=== PATIENT | male | born 1965 | race Two or more races ===

== ENCOUNTER 2018-02-03 22:36 | Emergency (ER) | payer MEDICAID, OTHER ==
[~2018-02-03] VITALS: Ht 165.1 cm; Wt 69.4 kg
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
--- NOTE | 2018-02-03 22:54 | NUR ---
CALLED [facility] DISPATCH RN HEART [phone]
--- NOTE | 2018-02-03 23:15 | NUR ---
ALEX BEDSIDE TAKING REPORT ON PT.
[2018-02-03 23:24] LABS: BASOPHILS % (AUTO) 0.2 % (0.0-2.0); EOSINOPHILS % (AUTO) 0.6 % (0.0-6.0); HEMATOCRIT 43 % (39-51); HEMOGLOBIN 14.6 g/dL (13.5-17.5); LYMPHOCYTES # (AUTO) 2.5 /CMM (0.8-4.8); LYMPHOCYTES % (AUTO) 17.8 % (20.0-44.0); MEAN CORPUSCULAR HGB CONC 34 g/dl (31.0-36.0); MEAN CORPUSCULAR VOLUME 94 fL (80-96); MONOCYTES # (AUTO) 0.6 /CMM (0.1-1.30); MONOCYTES % (AUTO) 4.4 % (2.0-12.0); NEUTROPHILS # (AUTO) 10.7 /CMM (1.8-8.9); PLATELET COUNT (AUTO) 224 /CMM (150-450); RDW COEFFICIENT OF VARIATION 14.9 (11.5-15.0); RED BLOOD CELL COUNT(AUTO) 4.58 MIL/uL (4.5-6.0); WHITE BLOOD COUNT (AUTO) 13.8 K/uL (4.3-11.0)
[2018-02-03 23:36] LABS: CALCIUM, SERUM 8.9 mg/dL (8.5-10.1); CREATININE 0.9 mg/dL (0.6-1.3); POTASSIUM 4.2 mmol/L (3.5-5.1)
[2018-02-03 23:39] LABS: INR 0.93 (0.87-1.13)
[2018-02-03 23:43] LABS: ALBUMIN 3.9 g/dL (3.4-5.0); BILIRUBIN,TOTAL 0.1 mg/dL (0.2-1.0); TOTAL PROTEIN, SERUM 7.7 g/dL (6.4-8.2)
[2018-02-04] MEDS ORDERED: TDAP [DIPH/PERTUSSIS/TET] 0.5 ML VIAL IM ONE ×2 (02:30→02:44)
[2018-02-04] MEDS ORDERED: CEFAZOLIN 1 GM VIAL IM ONE (02:30)
[2018-02-04] MEDS ORDERED: LIDOCAINE 1%-EPI 1:100,000 20 ML VIAL TP ONE (02:30)
[2018-02-04] MEDS ORDERED: LIDOCAINE 1%-EPI 1:100,000 20 ML VIAL ONE (02:44)
[2018-02-04] MEDS ORDERED: CEFAZOLIN 1 GM ONE (02:44)
--- NOTE | 2018-02-04 02:46 | NUR ---
DR. REY AT BEDSIDE FOR LAC REPAIR.
--- NOTE | 2018-02-04 03:31 | NUR ---
PT IS STABLE AFTER RECEIVING 10 STITCHES TO HIS NOSE BY LILY REY
--- NOTE | 2018-02-04 05:24 | NUR ---
PT IS STABLE IN BED SLEEPING. WILL CONTINUE TO MONITOR FOR ANY CHANGES DURING THE SHIFT.
--- NOTE | 2018-02-04 10:30 | NUR ---
Patient is resting comfortably in bed with eyes closed. Easily aroused. VSS
--- NOTE | 2018-02-04 11:50 | NUR ---
CALLED [employer] FOR FOOD TRAY.
--- NOTE | 2018-02-04 12:20 | NUR ---
FOOD TRAY PROVIDED TO PATIENT AT BS.
--- NOTE | 2018-02-04 12:55 | NUR ---
IV removed. Catheter intact and site benign. Pressure and 4x4 applied to site. No bleeding noted.Patient discharged to home in stable condition. Written and verbal after care instructions given. Patient verbalizes understanding of instruction.
[2018-02-04 12:58] VITALS: BP 126/84
--- NOTE | 2018-02-04 13:00 | NUR ---
AAOX3, AMBULATES OUT OF ER IN STABLE CONDITION.
== END 2018-02-04 13:03 | disposition home or self-care (01) ==
LOC: EDBD 22:39 → ER 22:39
DX: S02.2XXA Fracture of nasal bones, initial encounter for closed fracture (principal); S01.21XA Laceration without foreign body of nose, initial encounter; F10.10 Alcohol abuse, uncomplicated; I10 Essential (primary) hypertension; Y04.8XXA Assault by other bodily force, initial encounter; Y93.89 Activity, other specified; Y92.89 Other specified places as the place of occurrence of the external cause; Y99.8 Other external cause status
CPT/HCPCS: 36415; 70450-TC; 70486-TC; 71045-TC; 72125-TC; 80048-TC; 80076-TC; 80305; 82962-TC; 85025-TC; 85730-TC; 90715; A4606; G0480; J0690; J3490; Z7610

== ENCOUNTER 2019-07-16 21:37 | Emergency (ER) | payer MEDICAID, OTHER ==
[~2019-07-16] VITALS: Ht 165.1 cm; Wt 74.8 kg
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
--- NOTE | 2019-07-16 22:50 | NUR ---
Patient is resting comfortably in bed with eyes closed. Easily aroused. VSS.
--- NOTE | 2019-07-17 00:10 | NUR ---
Patient is resting comfortably in bed. Easily aroused. VSS.
[2019-07-17] MEDS ORDERED: BACI/NEOM/POLY B OINT PKT 1 UDPKT PACKET ONE (00:22)
--- NOTE | 2019-07-17 00:26 | NUR ---
DENTAL LABORATORY TECHNICIAN AT BEDSIDE FOR BLOOD COLLECTION.
[2019-07-17] MEDS ORDERED: BACI/NEOM/POLY B OINT PKT 1 UDPKT PACKET TP ONE (00:30)
[2019-07-17 00:32] LABS: BASOPHILS % (AUTO) 0.5 % (0.0-2.0); EOSINOPHILS % (AUTO) 0.1 % (0.0-6.0); HEMATOCRIT 39 % (39-51); LYMPHOCYTES # (AUTO) 2.4 /CMM (0.8-4.8); LYMPHOCYTES % (AUTO) 25.7 % (20.0-44.0); MEAN CORPUSCULAR HGB CONC 33 g/dl (31.0-36.0); MEAN CORPUSCULAR VOLUME 87 fL (80-96); MONOCYTES # (AUTO) 0.5 /CMM (0.1-1.30); MONOCYTES % (AUTO) 5.8 % (2.0-12.0); NEUTROPHILS # (AUTO) 6.3 /CMM (1.8-8.9); NEUTROPHILS % (AUTO) 67.9 % (43.0-81.0); PLATELET COUNT (AUTO) 217 /CMM (150-450); RED BLOOD CELL COUNT(AUTO) 4.48 MIL/uL (4.5-6.0); WHITE BLOOD COUNT (AUTO) 9.2 K/uL (4.3-11.0)
[2019-07-17 00:41] LABS: CALCIUM, SERUM 8.1 mg/dL (8.5-10.1); CREATININE 0.9 mg/dL (0.6-1.3); POTASSIUM 3.2 mmol/L (3.5-5.1)
--- NOTE | 2019-07-17 00:42 | NUR ---
PT BROUGHT TO CT.
--- NOTE | 2019-07-17 00:50 | NUR ---
PT BROUGHT BACK FROM CT
[2019-07-17] MEDS ORDERED: POTASSIUM CHLORIDE 20 MEQ TAB.PRT.SR PO ONE ×2 (01:00→01:03)
--- NOTE | 2019-07-17 01:13 | NUR ---
Patient is resting comfortably in bed with eyes closed. Easily aroused. VSS.
[2019-07-17 02:07] VITALS: BP 118/68
--- NOTE | 2019-07-17 02:07 | NUR ---
Patient discharged to home in stable condition. Written and verbal after care instructions given. Patient verbalizes understanding of instruction. PT ambulatory with a steady gait.
== END 2019-07-17 02:08 | disposition home or self-care (01) ==
LOC: ER 21:39
DX: S00.83XA Contusion of other part of head, initial encounter (principal); S00.212A Abrasion of left eyelid and periocular area, initial encounter; F10.129 Alcohol abuse with intoxication, unspecified; G40.909 Epilepsy, unspecified, not intractable, without status epilepticus; R51 Headache; I10 Essential (primary) hypertension; Z59.0 Homelessness; Y90.8 Blood alcohol level of 240 mg/100 ml or more; Y08.89XA Assault by other specified means, initial encounter; Y93.89 Activity, other specified; Y92.89 Other specified places as the place of occurrence of the external cause; Y99.8 Other external cause status
CPT/HCPCS: 36415; 70450-TC; 80048-TC; 85025-TC; 85730-TC; G0480

== ENCOUNTER 2019-07-28 15:33 | Emergency (ER) | payer OTHER ==
[~2019-07-28] VITALS: Ht 170.2 cm; Wt 67.6 kg
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
--- NOTE | 2019-07-28 15:50 | NUR ---
DR ANNE AT BEDSIDE
--- NOTE | 2019-07-28 16:08 | NUR ---
CALLED [facility] FOLDER TAPER OPERATOR #[phone] [place]. PERP NAME: JAZ WHITE MALE [id number] 5 FOOT SIX OF 5 FOOT 7 INCIDENT #[id number] ALEX WILL BE ON [address]IER [address].
[2019-07-28] MEDS: IV NS 0.9% 1,000 ML IV ONE (16:11)
--- NOTE | 2019-07-28 16:37 | NUR ---
ALEX PERRIN #[id number] AT BEDSIDE FOR INVESTIGATION
--- NOTE | 2019-07-28 17:20 | NUR ---
CALLED NICK CHECK IN 10 MINS
[2019-07-28 17:37] VITALS: BP 149/99
--- NOTE | 2019-07-28 18:08 | NUR ---
PATIENT ABLE TO AMBULATE WITH STEADY GAIT. WENT TO RESTROOM.
--- NOTE | 2019-07-28 18:20 | NUR ---
PATIENT WOULD LIKE TO BE DISCHARGED. PATIENT STATES THAT IT IS SAFE TO GO BACK TO HIS PLACE.
--- NOTE | 2019-07-28 18:30 | NUR ---
Patient given written and verbal discharge instructions. Patient verbalizes understanding of instructions. Patient is ambulatory with steady gait. Refuses offer of halfway placement. Patient given list of available shelters in surrounding area. Patient discharged with proper clothing. Patient's name band removed. Provided w tap card.
== END 2019-07-28 18:34 | disposition home or self-care (01) ==
LOC: ER 15:36
DX: S02.2XXA Fracture of nasal bones, initial encounter for closed fracture (principal); S09.8XXA Other specified injuries of head, initial encounter; R51 Headache; R56.9 Unspecified convulsions; I10 Essential (primary) hypertension; F10.10 Alcohol abuse, uncomplicated; Y90.8 Blood alcohol level of 240 mg/100 ml or more; Z59.0 Homelessness; Y04.0XXA Assault by unarmed brawl or fight, initial encounter; Y93.89 Activity, other specified; Y92.89 Other specified places as the place of occurrence of the external cause; Y99.8 Other external cause status
CPT/HCPCS: 36415; 70450; 70486; 72125; 80307; 99284; J7030; G0480

== ENCOUNTER 2020-02-22 19:16 | Emergency (ER) | payer OTHER ==
[~2020-02-22] VITALS: Ht 165.1 cm; Wt 59.0 kg
[2020-02-22] MEDS ORDERED: ACETAMINOPHEN ES 500 MG TABLET ONE (19:46)
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
--- NOTE | 2020-02-22 19:51 | NUR ---
RR EVEN AND UNLABORED. -KO. NO NEURO DEFICIT.
--- NOTE | 2020-02-22 19:53 | NUR ---
XRAY AT BEDSIDE
[2020-02-22] MEDS ORDERED: ACETAMINOPHEN 325 MG TABLET PO ONE (20:00)
--- NOTE | 2020-02-22 20:47 | NUR ---
EMT AT BEDSIDE FOR VERONICA WRAP. PT KNEE WRAPPED. PT REFUSED TO USE CRUTCHES AND STATED "I DON'T KNOW HOW TO USE THEM BEFORE SO I WON'T NEED THEM NOW" PT WAS TAUGHT HOW TO USE CRUTCHES. PT CONTINUES TO STATE HE WILL NOT NEED THEM. PATIENT DISCHARGED BUT NOT WILLING TO SIGN DISCHARGE PAPERS. VSS. PT USED CRUTCHES TO GO TO THE WAITING ROOM WHERE HE STATED HE WILL WAIT FOR SOMEONE TO PICK HIM UP.
[2020-02-22 20:50] VITALS: BP 127/76
== END 2020-02-22 20:51 | disposition home or self-care (01) ==
LOC: ER 19:19
DX: M25.562 Pain in left knee (principal); I10 Essential (primary) hypertension; E11.9 Type 2 diabetes mellitus without complications; F17.200 Nicotine dependence, unspecified, uncomplicated; Z59.0 Homelessness
CPT/HCPCS: 73564; 99283; J7030

== ENCOUNTER 2020-05-12 14:41 | Emergency (ER) | payer OTHER ==
[~2020-05-12] VITALS: Ht 170.2 cm; Wt 74.8 kg
[2020-05-12 14:46] VITALS: BP 130/86
--- NOTE | 2020-05-12 15:05 | NUR ---
SEEN AND EXMAINED BY .
--- NOTE | 2020-05-12 15:40 | NUR ---
Patient discharged to home in stable condition. Written and verbal after care instructions given. Patient verbalizes understanding of instruction.
--- NOTE | 2020-05-12 15:47 | NUR ---
Patient given written and verbal discharge instructions. Patient verbalizes understanding of instructions. Patient is ambulatory with steady gait. Refuses offer of alf placement. Patient given list of available shelters in surrounding area.
== END 2020-05-12 15:47 | disposition home or self-care (01) ==
LOC: ER 14:46
DX: F10.20 Alcohol dependence, uncomplicated (principal); R51 Headache; I10 Essential (primary) hypertension; E11.9 Type 2 diabetes mellitus without complications; F17.200 Nicotine dependence, unspecified, uncomplicated; Z59.0 Homelessness; Y90.9 Presence of alcohol in blood, level not specified